=== PATIENT | male | born 1985 | race Caucasian/White ===

== ENCOUNTER → 2021-11-17 | Outpatient (CLI) | payer OTHER ==
--- NOTE | 2021-11-18 08:40 | US ---
EXAMINATION TYPE: US abdomen complete DATE OF EXAM: 11/17/2021 COMPARISON: NONE CLINICAL HISTORY: 36-year-old male R10.9 ABDOMINAL PAIN. Generalized abdominal pain TECHNIQUE: Multiple sonographic images of the abdomen are obtained. FINDINGS: EXAM MEASUREMENTS: Liver Length: 17.3 cm Gallbladder Wall: 0.25 cm CBD: 0.3 cm Spleen: 9.5 cm Right Kidney: 10.7 x 6.3 x 5.6 cm Left Kidney: 11.3 x 6.2 x 6.8 cm Pancreas: Pancreatic head and neck as well as portions of the pancreatic body are seen. Tail is obscu red by bowel gas shadowing. Liver: Homogeneous appearance. No focal lesion seen. Gallbladder: multiple wall polyps are seen, largest gallbladder wall polyp = 0.2 x 0.4 x 0.3cm. No s hadowing calculi. No abnormal distention, wall thickening, or surrounding fluid. Evidence for sonographic Hogue's sign: no CBD: wnl Spleen: wnl Right Kidney: No hydronephrosis or masses seen Left Kidney: No hydronephrosis or masses seen Upper IVC: wnl Abd Aorta: size is wnl as visualized; mid aorta obscured by overlying bowel gas IMPRESSION: 1. Borderline hepatomegaly at 17.3 cm. 2. Multiple gallbladder wall polyps, largest measuring 4 mm. Six-month follow-up gallbladder ultrasou nd to reassess. 3. No gallstones or biliary ductal dilatation. 4. No hydronephrosis.
== END | disposition home or self-care (01) ==
LOC: RADUSWWP 15:27
PROVIDERS: ATTEND Family Medicine
DX: K82.4 Cholesterolosis of gallbladder (principal); R16.0 Hepatomegaly, not elsewhere classified
CPT/HCPCS: 76700

== ENCOUNTER 2022-02-24 09:27 | Day surgery (SDC) | payer OTHER ==
[~2022-02-24 09:27] MED LIST: LACTATED RINGERS 1,000 ML IV SCH
[2022-02-24] MEDS ORDERED: LIDOCAINE 1% (10MG/ML) FOR IV START INTRADERMA ONE (10:15)
[2022-02-24 10:22] VITALS: TEMP 98
[2022-02-24] MEDS ORDERED: PROPOFOL 10 MG/ML 20 ML VIAL IV ONE (10:53)
--- NOTE | 2022-02-24 10:58 | P.GSHP ---
History of Present Illness H&P Date: 02/24/22 Chief Complaint: GERD, abdominal pain, rectal bleeding Patient here today for upper and lower endoscopy. Patient intermittent episodes of rectal bleeding. Patient has had upper abdominal pain. No known triggers. Some reflux as well. Please refer to recent H&P from office visit one month ago. Past Medical History Past Medical History: GERD/Reflux Additional Past Medical History / Comment(s): intermittent abd pain that radiates in various areas for several months, describes as mostly dull ache, extended family hx. of cancers History of Any Multi-Drug Resistant Organisms: None Reported Additional Past Surgical History / Comment(s): wisdom teeth removed Past Anesthesia/Blood Transfusion Reactions: No Reported Reaction Smoking Status: Never smoker - Past Family History Mother Family Medical History: Cancer Additional Family Medical History / Comment(s): breast Medications and Allergies Home Medications Medication Instructions Recorded Confirmed Type Omeprazole Magnesium [PriLOSEC OTC] 20 mg PO DIRECTED PRN 02/20/22 02/24/22 History Allergies Allergy/AdvReac Type Severity Reaction Status Date / Time No Known Allergies Allergy Verified 02/24/22 10:05 Surgical - Exam Vital Signs Temp Pulse Resp BP Pulse Ox 98 F 64 16 148/67 99 02/24/22 10:15 02/24/22 10:15 02/24/22 10:15 02/24/22 10:15 02/24/22 10:15 Physical exam: General: Well-developed, well-nourished HEENT: Normocephalic, sclerae nonicteric Abdomen: Nontender, nondistended Extremities: No edema Neuro: Alert and oriented Assessment and Plan (1) Abdominal pain Narrative/Plan: Will proceed with upper and lower endoscopy Current Visit: Yes Status: Acute Code(s): R10.9 - UNSPECIFIED ABDOMINAL PAIN SNOMED Code(s): 86869020
--- NOTE | 2022-02-24 11:21 | P.PCN ---
Date of Procedure: 02/24/22 Procedure(s) Performed: PREOPERATIVE DIAGNOSIS: Abdominal pain, GERD, rectal bleeding POSTOPERATIVE DIAGNOSIS: Mild gastritis, hiatal hernia, normal colon with slightly poor prep PROCEDURE: 1. EGD with biopsy 2. Colonoscopy ANESTHESIA: MAC SURGEON: Foster Bryan M.D. SPECIMENS: Antrum ENDOSCOPIC PROCEDURE: The patient was on the endoscopy table in the left decubitus position. The Olympus gastroscope was inserted into the oropharynx and passed under direct visualization to the region of the third portion of the duodenum. From that point the scope was slowly withdrawn inspecting all surfaces carefully. There were no neoplastic inflammatory or polypoid lesions throughout the duodenum. The pylorus was widely patent. The stomach was carefully inspected. There was mild gastritis. A biopsy of the antrum took place to rule out H. pylori. Retroflexion revealed a small sliding hiatal hernia. The patient's GE junction was present 1 cm above the diaphragmatic hiatus. The esophagus was then carefully examined. There were no neoplastic inflammatory or polypoid lesions throughout the visualized esophagus. The patient was kept on the endoscopy table in the left decubitus position. The Olympus colonoscope was inserted into the anus and passed under direct visualization to the base of the cecum. The appendiceal orifice was visualized. From that point the scope was slowly withdrawn inspecting all surfaces carefully. There were no neoplastic inflammatory or polypoid lesions throughout the cecum, ascending, transverse, descending, sigmoid and rectum. There was no visible diverticulosis noted. The patient's prep was slightly poor with some retained liquid and solid stool seen scattered throughout the colon. Digital rectal examination was normal. The patient was taken to the recovery room in stable condition per anesthesia guidelines. RECOMMENDATIONS: Await biopsy results. As needed antiacid therapy. Repeat colonoscopy age 51.
[2022-02-24 11:30] VITALS: RESP 18
[2022-02-24 11:44] VITALS: BP 133/66; PULSE 80
== END 2022-02-24 12:09 | disposition home or self-care (01) ==
LOC: ORWHC2ENDO 09:27
PROVIDERS: ATTEND Surgery
DX: K29.50 Unspecified chronic gastritis without bleeding (principal); K44.9 Diaphragmatic hernia without obstruction or gangrene; K21.9 Gastro-esophageal reflux disease without esophagitis; Z80.3 Family history of malignant neoplasm of breast
CPT/HCPCS: 88305; 45378; 43239; J2704

== ENCOUNTER → 2022-06-29 | Outpatient (CLI) | payer OTHER ==
--- NOTE | 2022-06-29 10:04 | US ---
EXAMINATION TYPE: US gallbladder DATE OF EXAM: 06/29/2022 COMPARISON: NONE CLINICAL HISTORY: K82.4 GALLBLADDER POLYP. History of GB polyps, dull abdominal pain TECHNIQUE: Multiple sonographic images of the right upper quadrant are obtained. FINDINGS: EXAM MEASUREMENTS: Liver Length: 14.6 cm Gallbladder Wall: 0.3 cm CBD: 0.5 cm Right Kidney: 11.7 x 5.0 x 5.3 cm Pancreas: appears wnl Liver: wnl Gallbladder: multiple polyps seen, largest = 0.7cm Evidence for sonographic Hogue's sign: no CBD: wnl Right Kidney: no evidence of hydronephrosis IMPRESSION: Gallbladder polyps. Otherwise unremarkable study.
== END | disposition home or self-care (01) ==
LOC: RADUSWWP 09:19
PROVIDERS: ATTEND Surgery
DX: K82.4 Cholesterolosis of gallbladder (principal)
CPT/HCPCS: 76705

== ENCOUNTER 2024-04-26 13:53 | Emergency (ER) | payer OTHER ==
[2024-04-26 13:58] VITALS: RESP 18
--- NOTE | 2024-04-26 14:34 | ED ---
Abdominal Pain HPI - General Chief Complaint: Abdominal Pain Stated Complaint: abd pain Time Seen by Provider: 04/26/24 14:11 Source: patient, RN notes reviewed Mode of arrival: ambulatory Limitations: no limitations - History of Present Illness Initial Comments: This is a 39-year-old female presents emergency department chief complaint of epigastric abdominal pain with nausea and vomiting that started earlier this morning. Patient states that his symptoms of nausea have significantly subsided this morning however still experiencing epigastric abdominal pain. He denies fevers, chills, hematemesis, hematochezia or dark or tarry stools. Patient has a history of cholecystectomy approximately 2 years ago with no complications. Denies urinary symptoms. Denies cough, runny nose, headaches. - Related Data Home Medications Medication Instructions Recorded Confirmed Omeprazole Magnesium [PriLOSEC OTC] 20 mg PO DAILY 02/20/22 09/22/22 Multivitamins, Thera [Multivitamin 1 tab PO DAILY 09/22/22 09/22/22 (formulary)] Previous Rx's Medication Instructions Recorded oxyCODONE HCL [OxyIR] 5 mg PO Q6H PRN 3 Days #6 tab 09/28/22 Allergies Allergy/AdvReac Type Severity Reaction Status Date / Time No Known Allergies Allergy Verified 04/26/24 13:57 Review of Systems ROS Statement: Those systems with pertinent positive or pertinent negative responses have been documented in the HPI. ROS Other: All systems not noted in ROS Statement are negative. Past Medical History Past Medical History: GERD/Reflux Additional Past Medical History / Comment(s): intermittent abd pain that radiates in various areas for several months, describes as mostly dull ache, MIGRAINE HEADACHES, History of Any Multi-Drug Resistant Organisms: None Reported Past Surgical History: Cholecystectomy Additional Past Surgical History / Comment(s): wisdom teeth removed Past Anesthesia/Blood Transfusion Reactions: No Reported Reaction Past Psychological History: No Psychological Hx Reported Smoking Status: Never smoker Past Alcohol Use History: Occasional Past Drug Use History: Marijuana - Past Family History Mother Family Medical History: Cancer Additional Family Medical History / Comment(s): breast General Exam Limitations: no limitations General appearance: alert, in no apparent distress Neck exam: Present: normal inspection. Absent: tenderness, meningismus, lymphadenopathy Respiratory exam: Present: normal lung sounds bilaterally. Absent: respiratory distress, wheezes, rales, rhonchi, stridor Cardiovascular Exam: Present: regular rate, normal rhythm, normal heart sounds. Absent: systolic murmur, diastolic murmur, rubs, gallop, clicks GI/Abdominal exam: Present: soft, tenderness (epgiastric), normal bowel sounds. Absent: distended, guarding, rebound, rigid Extremities exam: Present: normal inspection, full ROM, normal capillary refill. Absent: tenderness, pedal edema, joint swelling, calf tenderness Back exam: Present: normal inspection Skin exam: Present: warm, dry, intact, normal color. Absent: rash Course Vital Signs 04/26/24 04/26/24 13:56 16:53 Temperature 97.3 F L 98.0 F Pulse Rate 81 66 Respiratory 18 18 Rate Blood Pressure 147/83 143/76 O2 Sat by Pulse 100 99 Oximetry Medical Decision Making - Medical Decision Making Was pt. sent in by a medical professional or institution (, PA, FIRE SPRINKLER SERVICE TECHNICIAN, urgent care, hospital, or [facility]...) When possible be specific @ -No Did you speak to anyone other than the patient for history (EMS, parent, family, police, friend...)? What history was obtained from this source @ -No Did you review nursing and triage notes (agree or disagree)? Why? @ -I reviewed and agree with nursing and triage notes Were old charts reviewed (outside hosp., previous admission, EMS record, old EKG, old radiological studies, urgent care reports/EKG's, [facility] records)? Report findings @ -No old charts were reviewed Differential Diagnosis (chest pain, altered mental status, abdominal pain women, abdominal pain men, vaginal bleeding, weakness, fever, dyspnea, syncope, headache, dizziness, GI bleed, back pain, seizure, CVA, palpatations, mental health, musculoskeletal)? @ -Differential Abdominal Pain Men: Appendicitis, cholecystitis, diverticulosis, ischemic bowel, pancreatitis, hepatitis, UTI, gastroenteritis, AAA, incarcerated hernia, bowel obstruction, constipation, inflammatory bowel, hepatitis, peptic ulcer disease, splenic infarction, perforated viscus, testicular torsion, this is not meant to be an all-inclusive list EKG interpreted by me (3pts min.). @ -Mom X-rays interpreted by me (1pt min.). @ -None done CT interpreted by me (1pt min.). @ -None done U/S interpreted by me (1pt. min.). @ -None done What testing was considered but not performed or refused? (CT, X-rays, U/S, labs)? Why? @ -CT imaging of the abdomen was considered but deferred at this time. Patient's laboratory studies including CBC, CMP, lactate and pancreatic enzymes within normal limits. Additionally patient has no episodes of emesis with the emergency department. There is minimal clinical concern for intra-abdominal pr ocess at this time and patient is agree with deferring CT imaging. What meds were considered but not given or refused? Why? @ -None Did you discuss the management of the patient with other professionals (professionals i.e. Dr., PA, FI[employer] SPRINKLER SERVICE TECHNICIAN, lab, RT, psych nurse, social welfare research worker, marketing admin, teacher, bank compliance officer, insurance case manager)? Give summary @ -No Was smoking cessation discussed for >3mins.? @ -No Was critical care preformed (if so, how long)? @ -No Were there social determinants of health that impacted care today? How? (Homelessness, low income, unemployed, alcoholism, drug addiction, transportation, low edu. Level, literacy, decrease access to med. care, penitentiary, rehab)? @ -No Was there de-escalation of care discussed even if they declined (Discuss DNR or withdrawal of care, Hospice)? DNR status @ -No What co-morbidities impacted this encounter? (DM, HTN, Smoking, COPD, CAD, Cancer, CVA, ARF, Chemo, Hep., AIDS, mental health diagnosis, sleep apnea, morbid obesity)? @ -None Was patient admitted / discharged? Hospital course, mention meds given and route, prescriptions, significant lab abnormalities, going to OR and other pertinent info. @ -Discharged. 39-year-old male with epigastric abdominal pain and nausea and vomiting. Patient has had no episodes of emesis while in the emergency depart ment. Vitals are stable. He is provided with a liter fluid bolus and antiemetics. Abdominal examination reveals mild epigastric tenderness palpation and he was provided with dose of Toradol. CBC, CMP, pancreatic enzymes within normal limits. Discussed with patient at bedside that symptoms are likely secondary to gastroenteritis and follow a liquid diet over the next 24 hours and slowly reintroduce foods. All questions answered at bedside and strict return parameters discussed with the patient he is verbalized understanding. Case discussed with Dr. Solis. Undiagnosed new problem with uncertain prognosis? @ -No Drug Therapy requiring intensive monitoring for toxicity (Heparin, Nitro, Insulin, Cardizem)? @ -No Were any procedures done? @ -No Diagnosis/symptom? @ -Epigastric abdominal pain, nausea vomiting Acute, or Chronic, or Acute on Chronic? @ -Acute Uncomplicated (without systemic symptoms) or Complicated (systemic symptoms)? @ -Uncomplicated Side effects of treatment? @ -No Exacerbation, Progression, or Severe Exacerbation? @ -No Poses a threat to life or bodily function? How? (Chest pain, [place], [place], pneumonia, PE, COPD, DKA, ARF, appy, cholecystitis, CVA, Diverticulitis, Homicidal, Suicidal, threat to staff... and all critical care pts) @ -No - Lab Data Result diagrams: 04/26/24 15:10 04/26/24 15:10 Lab Results 04/26/24 04/26/24 04/26/24 Range/Units 15:10 15:10 15:10 WBC 6.3 (3.8-10.6) k/uL RBC 4.90 (4.30-5.90) m/uL Hgb 15.1 (13.0-17.5) gm/dL Hct 43.3 (39.0-53.0) % MCV 88.5 (80.0-100.0) fL MCH 30.7 (25.0-35.0) pg MCHC 34.7 (31.0-37.0) g/dL RDW 12.9 (11.5-15.5) % Plt Count 224 (150-450) k/uL MPV 7.7 Neutrophils % 79 % Lymphocytes % 14 % Monocytes % 4 % Eosinophils % 1 % Basophils % 1 % Neutrophils # 5.0 (1.3-7.7) k/uL Lymphocytes # 0.9 L (1.0-4.8) k/uL Monocytes # 0.2 (0-1.0) k/uL Eosinophils # 0.1 (0-0.7) k/uL Basophils # 0.0 (0-0.2) k/uL Sodium 138 (137-145) mmol/L Potassium 4.2 (3.5-5.1) mmol/L Chloride 102 (98-107) mmol/L Carbon Dioxide 28 (22-30) mmol/L Anion Gap 8 mmol/L BUN 13 (9-20) mg/dL Creatinine 0.93 (0.66-1.25) mg/dL Est GFR (CKD-EPI)AfAm >90 (>60 ml/min/1.73 sqM) Est GFR (CKD-EPI)NonAf >90 (>60 ml/min/1.73 sqM) Glucose 109 H (74-99) mg/dL Plasma Lactic Acid Zaid 0.7 (0.7-2.0) mmol/L Calcium 9.9 (8.4-10.2) mg/dL Total Bilirubin 0.8 (0.2-1.3) mg/dL AST 30 (17-59) U/L ALT 28 (4-49) U/L Alkaline Phosphatase 57 (38-126) U/L Total Protein 7.4 (6.3-8.2) g/dL Albumin 4.8 (3.5-5.0) g/dL Amylase 61 (30-110) U/L Lipase 93 (23-300) U/L Disposition Clinical Impression: Abdominal pain, Nausea and vomiting Disposition: HOME SELF-CARE Condition: Good Instructions (If sedation given, give patient instructions): Abdominal Pain (ED) Additional Instructions: Return to the emergency department for any new or worsening symptoms. Recommend that you follow liquid diet over the next 24 hours and slowly reintroduce foods Is patient prescribed a controlled substance at d/c from ED?: No Referrals: Maurice Carrillo MD [Primary Care Provider] - 1-2 days Time of Disposition: 16:04
[2024-04-26] MEDS: SODIUM CHLORIDE 0.9% 1,000 ML IV STA (15:15)
[2024-04-26] MEDS: ONDANSETRON 4 MG/2 ML VIAL IVP STA (15:16)
[2024-04-26 15:21] LABS: Basophils % (A) 1 %; Eosinophils # (A) 0.1 k/uL (0-0.7); Eosinophils % (A) 1 %; HCT 43.3 % (39.0-53.0); HGB 15.1 gm/dL (13.0-17.5); Lymphocytes # (A) 0.9 k/uL (1.0-4.8); Lymphocytes % (A) 14 %; MCH 30.7 pg (25.0-35.0); MCHC 34.7 g/dL (31.0-37.0); MCV 88.5 fL (80.0-100.0); Mean Platelet Volume 7.7; Monocytes # (A) 0.2 k/uL (0-1.0); Monocytes % (A) 4 %; Neutrophils % (A) 79 %; Platelet Count 224 k/uL (150-450); RDW 12.9 % (11.5-15.5); WBC 6.3 k/uL (3.8-10.6)
[2024-04-26 15:33] LABS: ALT 28 U/L (4-49); AST 30 U/L (17-59); African American GFR (CKD) >90 (>60 ml/min/1.73 sqM); Albumin 4.8 g/dL (3.5-5.0); Alkaline Phosphatase 57 U/L (38-126); Amylase 61 U/L (30-110); Anion Gap 8 mmol/L; Blood Urea Nitrogen 13 mg/dL (9-20); Calcium 9.9 mg/dL (8.4-10.2); Carbon Dioxide 28 mmol/L (22-30); Chloride 102 mmol/L (98-107); Glucose 109 mg/dL (74-99); Lipase 93 U/L (23-300); Non-African American GFR(CKD) >90 (>60 ml/min/1.73 sqM); Potassium 4.2 mmol/L (3.5-5.1); Sodium 138 mmol/L (137-145); Total Bilirubin 0.8 mg/dL (0.2-1.3); Total Protein 7.4 g/dL (6.3-8.2)
[2024-04-26] MEDS: KETOROLAC 15 MG/ML 1 ML VIAL IVP STA (15:54)
[2024-04-26 16:54] VITALS: BP 143/76; PULSE 66; TEMP 98
== END 2024-04-26 16:54 | disposition home or self-care (01) ==
LOC: EC 13:53
CPT/HCPCS: 36415; 80053; 82150; 83605; 83690; 85025; 96361; 96374; 96375; 99284

== ENCOUNTER → 2024-08-31 | Outpatient (CLI) | payer OTHER ==
--- NOTE | 2024-08-31 10:15 | CT ---
EXAMINATION TYPE: CT abdomen pelvis wo/w con DATE OF EXAM: 08/31/2024 COMPARISON: Ultrasound abdomen complete November 17, 2021 CLINICAL INDICATION: Male, 39 years old with history of R10.9 ABD PAIN; PHH, Generalized abdominal pa in. TECHNIQUE: Performed with Oral Contrast and without and with IV Contrast, patient injected with 100ml mL of Isov ue 300. CT DLP: 1941.7 mGycm Automated exposure control for dose reduction was used. FINDINGS: LUNG BASES: There is 4 mm posterior left lower lobe nodule axial image 5. LIVER/GB: Cholecystectomy clips are now present. No biliary dilatation. PANCREAS: No significant abnormality is seen. SPLEEN: No significant abnormality is seen. ADRENALS: No significant abnormality is seen. KIDNEYS: No renal stones on noncontrast images. Postcontrast images show symmetric cortical medullary uptake and excretion without hydronephrosis seen bilaterally. FREE AIR: No free air is visualized. RETROPERITONEAL ADENOPATHY: None visualized REPRODUCTIVE ORGANS: Prostate gland upper limits of normal in size URINARY BLADDER: No significant abnormality is seen. PELVIC ADENOPATHY: None visualized. OSSEOUS STRUCTURES: No significant abnormality is seen. BOWEL: Oral contrast does not reach the level of the terminal ileum making evaluation of bowel sligh tly suboptimal. Mild/moderate diffuse colonic fecal prominence is seen. No abnormal small or large fly wel dilatation is noted. OTHER: Scattered tiny bilateral pelvic phleboliths. IMPRESSION: NO ACUTE FINDINGS ARE EVIDENT. [facility], , 08/31/2024 10:12 AM
== END | disposition home or self-care (01) ==
LOC: RADCTMAIN 08:05
PROVIDERS: ATTEND Family Medicine
DX: I87.8 Other specified disorders of veins (principal); R10.84 Generalized abdominal pain
CPT/HCPCS: 74178; Q9967